=== PATIENT | female | born 1955 | race Two or more races ===

== ENCOUNTER 2017-07-24 13:25 | Emergency (ER) | payer MEDICARE, OTHER ==
[~2017-07-24] VITALS: Ht 147.3 cm; Wt 62.1 kg
[2017-07-24 14:02] VITALS: BP 135/71
== END 2017-07-24 15:20 | disposition home or self-care (01) ==
LOC: ER 13:25
DX: S90.32XA Contusion of left foot, initial encounter (principal); S90.31XA Contusion of right foot, initial encounter; F41.9 Anxiety disorder, unspecified; W55.19XA Other contact with horse, initial encounter; Y93.89 Activity, other specified; Y92.89 Other specified places as the place of occurrence of the external cause; Y99.8 Other external cause status
CPT/HCPCS: 73630

== ENCOUNTER 2018-05-18 11:31 | Emergency (ER) | payer MEDICARE ==
[~2018-05-18] VITALS: Ht 147.3 cm; Wt 61.2 kg
[2018-05-18 12:24] VITALS: BP 123/71
[2018-05-18 12:49] LABS: Urine Bacteria NONE SEEN /hpf (None Seen); Urine Blood Negative /uL (Negative); Urine Specific Gravity 1.008 (1.001-1.035); Urine WBC 7 /hpf (0 - 5)
[2018-05-18] MEDS ORDERED: PHENAZOPYRIDINE HCL 100 MG TAB PO ONE (13:00)
== END 2018-05-18 13:17 | disposition home or self-care (01) ==
LOC: ER 11:31
DX: N39.0 Urinary tract infection, site not specified (principal)
CPT/HCPCS: 81001

== ENCOUNTER 2018-08-27 01:51 | Emergency (ER) | payer MEDICARE, OTHER ==
[~2018-08-27] VITALS: Ht 147.3 cm; Wt 62.1 kg
[2018-08-27 03:03] LABS: Albumin 3.2 g/dL (3.4-5.0); Amylase 455 U/L (25-115); Anion Gap 14 (5-15); BUN/Creatinine Ratio 9.4; Blood Urea Nitrogen 10 mg/dL (7-18); Calcium 8.9 mg/dL (8.5-10.1); Carbon Dioxide 24 mmol/L (21-32); Chloride 102 mmol/L (98-107); GFR African American 67 mL/min; GFR Non-African American 56 mL/min; Glucose 117 mg/dL (74-106); Lipase 145 U/L (73-393); Sodium 140 mmol/L (136-145)
[2018-08-27 03:06] LABS: Alanine Aminotransferase 80 U/L (13-56); Alkaline Phosphatase 230 U/L (45-117); Aspartate Aminotransferase 90 U/L (15-37); Bilirubin, Total 1.1 mg/dL (0.2-1.0); Total Protein 7.7 g/dL (6.4-8.2)
[2018-08-27 04:14] LABS: Basophils # (auto) 0.1 uL; Basophils % (auto) 0.3 % (0.0-2.0); Eosinophils # (auto) 0 uL; Eosinophils % (auto) 0.2 % (0.0-7.0); Hematocrit 42.5 % (36.0-46.0); Hemoglobin 14.5 g/dL (12.2-16.2); Lymphocytes # (auto) 0.5 uL; Lymphocytes % (auto) 2.9 % (10.0-50.0); Mean Corpuscular Hemoglobin 29.6 pg (28.0-32.0); Mean Corpuscular Volume 86.9 fL (80.0-100.0); Monocytes % (auto) 5.9 % (0.0-12.0); Neutrophils % (auto) 90.7 % (37.0-80.0); Nucleated Red Blood Cells % 0.1 %; Platelet Count (auto) 267 10^3/uL (140-450); Red Blood Cells 4.89 10^6/uL (4.0-5.20); Red Cell Distribution Width 13.5 % (11.8-14.3); White Blood Cell 16.5 10^3/uL (4.4-10.8)
[2018-08-27 04:32] LABS: INR < 0.93 (0.9-1.15); Partial Thromboplastin Time 27.4 sec (23.64-32.05)
[2018-08-27 04:38] LABS: Lactic Acid w/Reflex 2.6 mmol/L (0.4-2.0)
[2018-08-27] MEDS ORDERED: SODIUM CHLORIDE 0.9% 1,000 ML IV ONE (04:52)
[2018-08-27] MEDS ORDERED: VANCOMYCIN PER PHARMACY 1,000 MG IV SCH (05:00)
[2018-08-27] MEDS ORDERED: SODIUM CHLORIDE 0.9% 1,850 ML IV ONE (05:00)
[2018-08-27] MEDS ORDERED: VANCOMYCIN 1GM/250ML 250 ML IV ONE (05:15)
[2018-08-27] MEDS ORDERED: PIPERACILLIN-TAZOB 3.375GM 100 ML IV SCH ×2 (06:00→15:00)
[2018-08-27 07:25] VITALS: BP 114/62
[2018-08-27] MEDS ORDERED: FLEET MINERAL OIL ENEMA 133 ML PR ONE (08:00)
[2018-08-27 08:14] LABS: Alcohol, Urine < 3.0 mg/dL (0-5); Amphetamine Screen, Urine NEGATIVE (NEGATIVE); Barbiturate Scree,Urine NEGATIVE (NEGATIVE); Benzodiazephine Screen, Urine POSITIVE (NEGATIVE); Cannabinoid Screen, Urine NEGATIVE (NEGATIVE); Cocaine Screen, Urine NEGATIVE (NEGATIVE); Opiate Scree,Urine POSITIVE (NEGATIVE); Phencyclidine Screen, Urine NEGATIVE (NEGATIVE)
[2018-08-27 08:24] LABS: Urine Bacteria NONE SEEN /hpf (None Seen); Urine Blood Negative /uL (Negative); Urine Specific Gravity 1.009 (1.001-1.035); Urine WBC <1 /hpf (0 - 5)
[2018-08-27 10:53] LABS: Lactic Acid w/Reflex 2.8 mmol/L (0.4-2.0)
[2018-08-27] MEDS ORDERED: methylPREDNISolone SOD SUCC 125 MG/2 ML VL IV ONE (11:00)
[2018-08-27] MEDS ORDERED: diphenhdrAMINE HCL 50 MG/1 ML VL IV ONE (11:00)
[2018-08-27] MEDS ORDERED: IOHEXOL 350 MG/ML 100ML IJ ONE (11:01)
[2018-08-28] MEDS ORDERED: VANCOMYCIN 1GM/250ML 250 ML IV SCH (06:00)
== END 2018-08-27 13:32 | disposition home or self-care (01) ==
LOC: ER 01:54
DX: K59.03 Drug induced constipation (principal); T40.2X5A Adverse effect of other opioids, initial encounter; R79.1 Abnormal coagulation profile; E44.1 Mild protein-calorie malnutrition; R11.2 Nausea with vomiting, unspecified; R74.8 Abnormal levels of other serum enzymes; Z68.28 Body mass index [BMI] 28.0-28.9, adult; Z90.49 Acquired absence of other specified parts of digestive tract; Z98.86 Personal history of breast implant removal; Y92.89 Other specified places as the place of occurrence of the external cause
CPT/HCPCS: 36415; 36600; 71045; 71275; 74176; 80053; 80307; 81001; 82150; 82553; 82805; 83605; 83690; 83735; 84484; 85025; 85379; 85384; 85610; 85730; 86850; 86900; 86901; 87040; 87086; 93005; 96361; 96365; 96366; 96368; 96375; 99284; J1200; J2543; J2930; J3370; J7030; Q9967

== ENCOUNTER 2019-08-26 21:52 | Emergency (ER) | payer OTHER ==
[~2019-08-26] VITALS: Ht 152.4 cm; Wt 77.1 kg
[2019-08-27] MEDS ORDERED: ALPRAZolam 0.5 MG TAB PO ONE (00:30)
[2019-08-27] MEDS ORDERED: ONDANSETRON HCL 4 MG/2 ML VIAL ONE (01:11)
[2019-08-27 01:26] LABS: Basophils # (auto) 0 10 ^3/uL (0-0.2); Basophils % (auto) 0.4 % (0.0-2.0); Eosinophils # (auto) 0 10 ^3/uL (0-0.8); Eosinophils % (auto) 0.1 % (0.0-7.0); Hematocrit 45.3 % (36.0-46.0); Hemoglobin 15.5 g/dL (12.2-16.2); Lymphocytes # (auto) 1.4 10 ^3/uL (0.4-5.4); Lymphocytes % (auto) 14.8 % (10.0-50.0); Mean Corpuscular Hemoglobin 29.6 pg (28.0-32.0); Mean Corpuscular Hgb Conc. 34.3 g/dL (32.0-36.0); Mean Corpuscular Volume 86.2 fL (80.0-100.0); Monocytes # (auto) 0.4 10 ^3/uL (0-1.3); Monocytes % (auto) 3.7 % (0.0-12.0); Neutrophils # (auto) 7.7 10 ^3/uL (1.6-8.6); Nucleated Red Blood Cells % 0.1 %; Platelet Count (auto) 329 10^3/uL (140-450); Red Blood Cells 5.25 10^6/uL (4.0-5.20); Red Cell Distribution Width 13.5 % (11.8-14.3); White Blood Cell 9.5 10^3/uL (4.4-10.8)
[2019-08-27 01:50] LABS: Albumin 3.9 g/dL (3.4-5.0); Calcium 9.3 mg/dL (8.5-10.1); Potassium 3.3 mmol/L (3.5-5.1)
[2019-08-27 01:53] LABS: Bilirubin, Total 0.8 mg/dL (0.2-1.0)
[2019-08-27] MEDS ORDERED: PROMETHAZINE HCL 25 MG/ML 1ML IV ONE (03:45)
[2019-08-27 04:07] VITALS: BP 145/69
== END 2019-08-27 04:09 | disposition home or self-care (01) ==
LOC: EDBD 21:52 → EDUNIT# 21:52 → ER 21:54
DX: F13.239 Sedative, hypnotic or anxiolytic dependence with withdrawal, unspecified (principal); F41.9 Anxiety disorder, unspecified
CPT/HCPCS: 36415; 80053; 82150; 83690; 85025; 96374; 99283; J2405; J2550

== ENCOUNTER 2024-10-02 11:31 | Emergency (ER) | payer OTHER ==
[~2024-10-02] VITALS: Ht 147.3 cm; Wt 59.0 kg
--- NOTE | 2024-10-02 14:54 | ED.PDOC ---
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 Patient reports that she was lifting a saddle onto a horse when the pain occurred, and has been constant since. Patient saw her PCP and was prescribed Robaxin, prednisone, as well as an x-ray which was negative. Patient notes and a having no relief of pain. Denies fevers chills night sweats nausea vomiting redness around the shoulder Denies previous surgeries to the shoulder or significant injury Numbness/tingling down the arm Denies changes, shortness of breath Chief Complaint: Upper Extremity Time Seen by MD: 14:15 Primary Care Provider: HARRIS Walker Notes: Nurses Notes, Medications, Allergies Allergies: Coded Allergies: Iodine (Verified Allergy, Severe, ANAPHYLATIC, 10/02/24) Codeine (Verified Allergy, Unknown, 08/26/19) Hydromorphone (Verified Allergy, Unknown, RASH , SNEEZING, 10/02/24) Morphine (Verified Allergy, Unknown, RASH AND VOMITTING, 10/02/24) Sulfa Antibiotics (Verified Allergy, Unknown, 08/26/19) Home Meds Active Scripts Tramadol HCl (Tramadol HCl) 50 Mg Tab, 50 MG PO Q8HP PRN for 5 Days, #15 TAB 0 Refills Prov:YOGIGENET NP 10/02/24 Information Source: Patient Mode of Arrival: Ambulatory Location: Left Extremity Location: Shoulder Timing: Weeks Prehospital treatment: None Severity: Moderate Able to Move Extremity: Yes Bear Weight: Limited Pain: Moderate Hand Dominance: Right Mechanism: Lifting (A saddle onto horse) Circumstances: Spontaneous Onset of Symptoms: Spontaneous Symptoms: Pain DVT Risk Factors: NONE Past Medical History PAST MEDICAL HISTORY: High Lipids, UTI'S Surgical History: Appendectomy, Surgical History (Other): Full surgery, right knee surgery, ACCIDENT EXAMINER History: 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 History Family History Family History: Reviewed,noncontributory to illness, Unknown Social History Smoker: Non-Smoker Alcohol: Denies ETOH Use Drugs: Denies Drug Use Lives In: Home Constitutional: denies: chills, diaphoresis, fatigue, fever, malaise, sweats, weakness, others EENTM: denies: blurred vision, double vision, ear bleeding, ear discharge, ear drainage, ear pain, ear ringing, eye pain, eye redness, hearing loss, mouth pain, mouth swelling, nasal discharge, nose bleeding, nose congestion, nose pain, photophobia, tearing, throat pain, throat swelling, voice changes, others Respiratory: denies: cough, hemoptysis, orthopnea, SOB at rest, shortness of breath, SOB with excertion, stridor, wheezing, others Cardiovascular: denies: chest pain, dizzy spells, diaphoresis, Dyspnea on exertion, edema, irregular heart beat, left arm pain, lightheadedness, palpitations, PND, syncope, others Gastrointestinal: denies: abdomen distended, abdominal pain, blood streaked bowels, constipated, diarrhea, dysphagia, difficulty swallowing, hematemesis, melena, nausea, poor appetite, poor fluid intake, rectal bleeding, rectal pain, vomiting, others Genitourinary: denies: abnormal vagina bleeding, burning, dyspareunia, dysuria, flank pain, frequency, hematuria, incontinence, pain, , vagina discharge, urgency, others Neurological: denies: dizziness, fainting, headache, left sided numbness, left sided weakness, numbness, paresthesia, pre-existing deficit, right sided numbness, right sided weakness, seizure, speech problems, tingling, tremors, weakness, others Musculoskeletal: reports: others (Left shoulder pain); denies: back pain, gout, joint pain, joint swelling, muscle pain, muscle stiffness, neck pain Integumetry: denies: bruises, change in color, change in hair/nails, dryness, laceration, lesions, lumps, rash, wounds, others Allergic/Immunocompromised: denies: Difficulty Healing, Frequent Infections, Hives, Itching, others Hematologic/Lymphatic: denies: anemia, blood clots, easy bleeding, easy bruising, swollen glands, others Endocrine: denies: excessive hunger, excessive sweating, excessive thirst, excessive urination, flushing, intolerance to cold, intolerance to heat, unexplained weight gain, unexplained weight loss, others Psychiatric: denies: anxiety, bipolar disorder, depression, hopeless, panic disorder, schizophrenia, sleepless, suicidal, others All Other Systems: Reviewed and Negative Physical Exam General Appearance: No Apparent Distress, Normal HEENT: Normal ENT Inspection, Pharynx Normal, TMs Normal Neck: Full Range of Motion, Non-Tender, Normal, Normal Inspection Respiratory: Chest Non-Tender, Lungs Clear, No Accessory Muscle Use, No Respiratory Distress, Normal Breath Sounds Cardiovascular: No Murmur, No Gallop, Regular Rate/Rhythm Breast Exam: Deferred Gastrointestinal: No Organomegaly, Non Tender, No Pulsatile Mass, Normal Bowel Sounds, Soft Genitalia: Deferred Pelvic: Deferred Rectal: Deferred Extremities: No calf tenderness, Normal capillary refill, Normal inspection, Normal range of motion, Non-tender, No pedal edema Musculoskeletal : Location: Left Extremity Location: Shoulder (Pain) Apperance: Normal Neurologic: Alert, material control manager II-XII nml as Tested, No Motor Deficits, Normal Affect, Normal Mood, No Sensory Deficits Cerebellar Function: Normal Reflexes: Normal Skin: Dry, Normal Color, Warm Lymphatic: No Adenopathy Was a procedure done? Was a procedure done?: No Differential Diagnosis EXT Differential Diagnosis: Fracture, Sprain, Dislocation, Arthritis X-Ray, Labs, Meds, VS Vital Signs Date Time Temp Pulse Resp B/P (MAP) Pulse Ox O2 Delivery O2 Flow Rate FiO2 10/02/24 16:02 98.7 69 16 154/79 (104) 96 98.7 10/02/24 16:02 69 16 96 Room Air 10/02/24 15:57 69 18 104/50 (68) 96 10/02/24 11:32 97.7 82 16 135/78 94 97.7 Current Medications Medications (Trade) Dose Ordered Sig/Gabby Route Start Time Stop Time Status Last Admin Ketorolac Tromethamine (Toradol Injection) 60 mg ONCE ONCE IM 10/02/24 16:00 10/02/24 16:02 DC 10/02/24 16:06 Methylprednisolone Sodium Succinate (Solu Medrol) 125 mg ONCE ONCE IM 10/02/24 16:15 10/02/24 16:16 DC 10/02/24 16:09 X-Ray, Labs, Meds, VS Comment 69-year-old female presents with a UR with prior MHx of high lipids, UTI: Surgical history of colon surgery, right knee surgery, appendectomy, 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 Patient arrives alert and oriented, ABC's intact, afebrile, vital signs stable, saturating well in room air Diagnostic imaging ordered by me and results interpreted by radiology : X-RAY SHOULDER 3V INTERPRETED BY ME: Bones: No fracture Joints: No dislocation Foreign body: None Impression: Normal Shoulder X-Ray Recommended heat therapy Reviewed RICE management Avoid heavy lifting or strenuous activity Recommended range of motion exercises and limit heavy activity for 1 week Patient is stable for discharge at this time. External notes reviewed. Test results and diagnostic imaging interpreted. All diagnostic findings, discharge care, education and instructions provided Follow-up with PCP in 2 to 3 days. Patient may benefit from an MRI in the outpatient setting. Patient verbalized understanding and agreed to treatment plan Vital signs stable, afebrile, no acute distress noted Patient ambulatory with strong steady gait Advised to return precautions for any new or worsening symptoms, return to ER immediately for re-evaluation Patient is aware that the purpose of this visit was for an acute medical emergency requiring emergent stabilization. Chronic conditions, including malignancies have not been ruled out. Patient is instructed to follow up with PCP as directed and discharge instructions for continued care and workup. If unable to arrange follow-up, patient is to return to the emergency department for reassessment. Patient (parent or legal guardian if applicable) was given verbal and written discharge instructions and acknowledges understanding. Additional MDM Review of External, Non-ED records: External records reviewed. Discussion with independent historian (EMS, family) history obtained from the patient/parents (if applicable) at bedside Chronic conditions affecting care: None Social determinants of health affecting care: None Consideration of admission (observation or admission): I considered escalation of care to admission for this patient, however given the reassuring workup, the patient is safe for outpatient management. Time of 1ST Reevaluation: 14:45 Reevaluation 1ST: Unchanged Time of 2ND Reevaluation: 15:00 Reevaluation 2ND: Improved Patient Education/Counseling: Diagnosis, Treatment, Prognosis Family Education/Counseling: No Family Present Departure 1 Departure Time of Disposition: 15:27 Impression: Primary Impression: Rotator cuff injury Qualified Codes: S46.002A - Unspecified injury of muscle(s) and tendon(s) of the rotator cuff of left shoulder, initial encounter Disposition: HOME / SELF CARE / HOMELESS Condition: Stable e-Prescriptions Tramadol HCl (Tramadol HCl) 50 Mg Tab 50 MG PO Q8HP PRN for 5 Days, #15 TAB 0 Refills Prov: GENET CALIX NP 10/02/24 Discharged With: Self Critical Care Note Critical Care Time?: No Stability Stability form required: No Heart Score Heart Score: Heart Score Response (Comments) Value History N/A 0 EKG N/A 0 Age N/A 0 Risk Factors N/A 0 Troponin N/A 0 Total 0 I personally scribed for GENET CALIX NP ([email or web address]) on 10/02/24 at 14:54. Electronically submitted by Gerry Lorenzana ([email or web address]). GENET CALIX NP Oct 02, 2024 14:54
--- NOTE | 2024-10-02 14:55 | DVH ---
CLINICAL INDICATION: Pain; R/o fracture TECHNIQUE: 3 radiographic views of the left shoulder were obtained. Comparison: None FINDINGS/IMPRESSION: There is no evidence of acute fracture or dislocation. The visualized joint space is well maintained. The alignment is anatomical. There is no radiopaque foreign body.
[2024-10-02] MEDS ORDERED: methylPREDNISolone SOD SUCC 40 MG/ML VL IM ONE (16:00)
[2024-10-02 16:02] VITALS: BP 154/79; PULSE 69; RESP 16; TEMP 98.7; O2SAT 96
[2024-10-02] MEDS: KETOROLAC TROMETH 60MG/2ML VIAL IM ONE (16:06)
[2024-10-02] MEDS: methylPREDNISolone SOD SUCC 125 MG/2 ML VL IM ONE (16:06)
[2024-10-02] MEDS ORDERED: TRAM-626 PO (16:20)
== END 2024-10-02 16:17 | disposition home or self-care (01) ==
LOC: ER 11:31
DX: S46.002A Unspecified injury of muscle(s) and tendon(s) of the rotator cuff of left shoulder, initial encounter (principal); Z90.49 Acquired absence of other specified parts of digestive tract; Z88.5 Allergy status to narcotic agent; Z88.2 Allergy status to sulfonamides; X58.XXXA Exposure to other specified factors, initial encounter; Y93.89 Activity, other specified; Y92.89 Other specified places as the place of occurrence of the external cause; Y99.8 Other external cause status
CPT/HCPCS: 73030; 96372; 99284; J1885; J2919

== ENCOUNTER 2024-12-18 15:04 | Emergency (ER) | payer OTHER ==
[~2024-12-18] VITALS: Ht 147.3 cm; Wt 61.4 kg
[~2024-12-18 15:04] MED LIST: TRAM-626 PO
--- NOTE | 2024-12-18 16:16 | DVH ---
INDICATION: RUQ pain, eval for gallstones TECHNIQUE: Multiple real-time sonographic images were obtained of the right upper quadrant. COMPARISON: None FINDINGS: The liver demonstrates heterogenous echotexture without focal mass lesions. The liver marianne ures 11.8 cm. There is no intrahepatic or extrahepatic ductal dilatation. The common duct measures 7.5 mm. Cholelithiasis. Gallbladder is contracted. No wall thickening or tenderness. The right kidney measures 9 cm. The right kidney is normal in contour, size, and shape. The echogeni city is normal. There is no hydronephrosis. The pancreas is not well visualized due to overlying bowel gas. IMPRESSION: Cholelithiasis. No secondary signs of acute cholecystitis. Mildly dilated common bile duct. Correlate with LFTs. MRCP may be helpful for further assessment.
[2024-12-18 16:24] LABS: Hematocrit 45.3 % (36.0-46.0); Hemoglobin 15.2 g/dL (12.2-16.2); Mean Corpuscular Hemoglobin 30.0 pg (28.0-32.0); Mean Corpuscular Volume 89.1 fL (80.0-100.0); Nucleated Red Blood Cells % 0.1 %
[2024-12-18 16:38] LABS: Alanine Aminotransferase 25 U/L (7-40); Albumin 4.1 g/dL (3.2-4.8); Alkaline Phosphatase 103 U/L (46-116); Anion Gap 8 (5-15); BUN/Creatinine Ratio 11.5 (10.0-20.0); Bilirubin, Total 0.8 mg/dL (0.2-1.0); Blood Urea Nitrogen 9 mg/dL (9-23); Calcium 9.5 mg/dL (8.7-10.4); Carbon Dioxide 28 mmol/L (20-31); Chloride 106 mmol/L (98-107); Lipase 41 U/L (12-53); Potassium 4.1 mmol/L (3.5-5.1); Sodium 142 mmol/L (136-145); Total Protein 6.9 g/dL (5.7-8.2)
[2024-12-18 16:39] LABS: Glucose 111 mg/dL (74-106)
[2024-12-18 18:42] VITALS: BP 137/74; PULSE 67; RESP 12; TEMP 97.5; O2SAT 93
[2024-12-18] MEDS: ACETAMINOPHEN 325 MG TAB PO ONE (18:46)
[2024-12-18] MEDS: FAMOTIDINE 20 MG TAB PO ONE (18:46)
[2024-12-18] MEDS: MAALOX PLUS or MAALOX 30 ML PO ONE (18:47)
[2024-12-18] MEDS: KETOROLAC TROMETH 30 MG/ML 1ML VIAL IM ONE (18:47)
== END 2024-12-18 18:51 | disposition home or self-care (01) ==
LOC: ER 15:04
DX: K80.20 Calculus of gallbladder without cholecystitis without obstruction (principal)
CPT/HCPCS: 36415; 76705; 80053; 83690; 85025; 96372; 99285; J1885